=== PATIENT | female | born 1980 | race Asian ===

== ENCOUNTER 2017-01-11 02:24 | Inpatient (IN) | payer MEDICARE, MEDICAID ==
[~2017-01-11] VITALS: Ht 149.9 cm; Wt 51.7 kg
[~2017-01-11 02:24] MED LIST: METO-5 PO; OYST500T48 OR; SEVE800T PO
[2017-01-11 03:23] LABS: Basophils # (auto) 0.1 uL; Basophils % (auto) 0.4 % (0.0-2.0); Eosinophils # (auto) 0.1 uL; Eosinophils % (auto) 0.9 % (0.0-7.0); Hematocrit 34.6 % (36.0-46.0); Hemoglobin 11.4 g/dL (12.2-16.2); Lymphocytes # (auto) 2.2 uL; Lymphocytes % (auto) 16.1 % (10.0-50.0); Mean Corpuscular Hemoglobin 30.8 pg (28.0-32.0); Mean Corpuscular Hgb Conc. 32.9 g/dL (32.0-36.0); Mean Corpuscular Volume 93.4 fL (80.0-100.0); Mean Platelet Volume 8.9 fL (7.4-10.4); Monocytes # (auto) 0.4 uL; Monocytes % (auto) 2.8 % (0.0-12.0); Neutrophils # (auto) 11.1 uL; Neutrophils % (auto) 79.8 % (37.0-80.0); Platelet Count (auto) 228 10^3/uL (140-450); Red Cell Distribution Width 13.7 % (11.6-16.0); White Blood Cell 13.9 10^3/uL (4.4-10.8)
[2017-01-11 03:30] LABS: Prothrombin Time 10.8 sec (9.37-12.3)
[2017-01-11 03:49] LABS: Albumin 3.7 g/dL (3.4-5.0); Anion Gap 16 (5-15); Aspartate Aminotransferase 25 U/L (15-37); Carbon Dioxide 22 mmol/L (21-32); Chloride 94 mmol/L (98-107); Glucose 103 mg/dL (74-106); Magnesium 2.4 mg/dL (1.6-2.6); Sodium 132 mmol/L (136-145)
[2017-01-11 03:56] LABS: Alkaline Phosphatase 71 U/L (45-117); BUN/Creatinine Ratio 7.3; Bilirubin, Total 0.4 mg/dL (0.2-1.0); GFR African American 3 mL/min; GFR Non-African American 3 mL/min; Total Protein 8.1 g/dL (6.4-8.2)
[2017-01-11 04:33] LABS: Potassium 6.9 mmol/L (3.5-5.1)
[2017-01-11 04:34] LABS: Blood Urea Nitrogen 118 mg/dL (7-18); Calcium 5.8 mg/dL (8.5-10.1)
[2017-01-11] MEDS ORDERED: SODIUM BICARBONATE 8.4 % INJ 50ML VIAL IV ONE ×2 (05:00→11:15)
[2017-01-11] MEDS ORDERED: DEXTROSE (50%) 50ML SYRG IV ONE (05:00)
[2017-01-11] MEDS ORDERED: ONDANSETRON HCL 4 MG/2 ML VIAL IV ONE (05:00)
[2017-01-11] MEDS ORDERED: InsuLIN REG 1unit/0.01ml Soln (100units/ml) IV ONE ×2 (05:00→11:15)
[2017-01-11] MEDS ORDERED: SODIUM CHLORIDE 0.9% 1,000 ML IV ONE (05:00)
[2017-01-11] MEDS ORDERED: CALCIUM GLUC 4.65 MEQ/10ML IV ONE (05:09)
[2017-01-11 05:10] LABS: Temperature: 21.9 C (20.0-25.0)
[2017-01-11] MEDS ORDERED: CALCIUM GLUC 4.65 MEQ/10ML 4.65 MEQ in SODIUM CHL 0.9% 50 ML IV ONE (05:15)
[2017-01-11] MEDS ORDERED: SODIUM POLYSTYRENE SULF 15GM/60ML SUSP PO ONE (06:15)
[2017-01-11 10:58] LABS: BUN/Creatinine Ratio 7.5; Calcium 6.4 mg/dL (8.5-10.1)
[2017-01-11 11:07] LABS: Potassium 7.9 mmol/L (3.5-5.1)
[2017-01-11] MEDS ORDERED: ALBUTEROL SULF 2.5 MG/0.5ML(0.5%) NEB SOLN NEB ONE (11:15)
[2017-01-11] MEDS ORDERED: CALCIUM CHL 100MG/ML 1,000 MG in D5W 5% 100 ML IV ONE (11:15)
[2017-01-11 11:33] LABS: Urine Bilirubin Negative (Negative); Urine Blood TRACE /uL (Negative); Urine Color Yellow (Yellow); Urine Glucose 2+ mg/dL (Normal); Urine Ketone Negative (Negative); Urine Nitrite Negative (Negative); Urine RBC 2 /hpf (0 - 4); Urine Squamous Epithelial Cell FEW /hpf (<5); Urine Urobilinogen Normal (Negative)
[2017-01-11] MEDS ORDERED: INSULIN R IV ONE ×4 (11:45)
[2017-01-11] MEDS ORDERED: SODIUM CHL 0.9% IV SCH (11:45)
[2017-01-11] MEDS ORDERED: INSULIN R IV SCH (11:45)
[2017-01-11] MEDS ORDERED: SODIUM CHL 0.9% IV ONE ×4 (11:45)
[2017-01-11] MEDS ORDERED: SODIUM CHL 0.9% 1000 ML BAG XX ONE (14:30)
[2017-01-11] MEDS ORDERED: HYDROcodone-ACET 5/325MG TAB PO PRN (14:45)
[2017-01-11] MEDS ORDERED: NITROGLYCERIN 0.4 MG SL TAB SL PRN (14:45)
[2017-01-11] MEDS ORDERED: TEMAZEPAM 15 MG CAP PO PRN (14:45)
[2017-01-11] MEDS ORDERED: MORPHINE SULF INJ 2 MG/ML SYRINGE 1ML IV PRN ×2 (14:45)
[2017-01-11] MEDS ORDERED: ONDANSETRON HCL 4 MG/2 ML VIAL IV PRN (14:45)
[2017-01-11] MEDS ORDERED: ACETAMINOPHEN 325 MG TAB PO PRN (14:45)
[2017-01-11] MEDS ORDERED: DEXTROSE (50%) 50ML SYRG IV PRN (14:45)
[2017-01-11] MEDS ORDERED: DOCUSATE SOD 100 MG CAP PO PRN (14:45)
[2017-01-11] MEDS ORDERED: METOPROLOL TARTRATE 50 MG TAB PO ONE (15:00)
[2017-01-11] MEDS ORDERED: MULTIPLE VITAMIN TAB PO ONE (15:00)
[2017-01-11 19:39] LABS: BUN/Creatinine Ratio 5.8; Calcium 7.6 mg/dL (8.5-10.1); Potassium 4.4 mmol/L (3.5-5.1)
[2017-01-11 20:00] VITALS: BP 145/76
[2017-01-11 22:00] VITALS: BP 145/76
[2017-01-11] MEDS: FAMOTIDINE 20 MG TAB PO SCH (22:00)
[2017-01-11] MEDS: InsuLIN REG 1unit/0.01ml Soln (100units/ml) SC SCH (22:00)
[2017-01-11] MEDS: ACCU-CHEK COMFORT CURVE STRIP VI SCH (22:00)
[2017-01-11] MEDS: SEVELAMER 800 MG TAB PO SCH (22:27)
[2017-01-11] MEDS: SODIUM CHLOR 0.9% PF (SALINE LOCK) 10ML VIAL IV SCH (22:27)
[2017-01-11] MEDS: CALCIUM CARB 500 MG CHEW TAB PO SCH (22:28)
[2017-01-11] MEDS: METOPROLOL TARTRATE 50 MG TAB PO SCH (22:28)
[2017-01-12] VITALS (7 sets, daily range): BP systolic 133–166; BP diastolic 71–95
[2017-01-12] MEDS: SODIUM CHLOR 0.9% PF (SALINE LOCK) 10ML VIAL IV SCH ×2 (06:00→14:00)
[2017-01-12 06:29] LABS: Basophils # (auto) 0.1 uL; Basophils % (auto) 0.5 % (0.0-2.0); Eosinophils # (auto) 0.2 uL; Eosinophils % (auto) 1.6 % (0.0-7.0); Hematocrit 33.3 % (36.0-46.0); Lymphocytes # (auto) 3.2 uL; Lymphocytes % (auto) 29.9 % (10.0-50.0); Mean Corpuscular Hemoglobin 30.6 pg (28.0-32.0); Mean Corpuscular Volume 92.9 fL (80.0-100.0); Mean Platelet Volume 9.1 fL (7.4-10.4); Monocytes % (auto) 9.7 % (0.0-12.0); Neutrophils # (auto) 6.2 uL; Neutrophils % (auto) 58.3 % (37.0-80.0); Platelet Count (auto) 223 10^3/uL (140-450); Red Cell Distribution Width 13.5 % (11.6-16.0); White Blood Cell 10.6 10^3/uL (4.4-10.8)
[2017-01-12] MEDS: InsuLIN REG 1unit/0.01ml Soln (100units/ml) SC SCH ×2 (06:37→11:30)
[2017-01-12] MEDS: ACCU-CHEK COMFORT CURVE STRIP VI SCH ×2 (06:37→11:30)
[2017-01-12 06:40] LABS: Potassium 4.1 mmol/L (3.5-5.1)
[2017-01-12 06:54] LABS: Albumin 3.4 g/dL (3.4-5.0); BUN/Creatinine Ratio 5.7; Bilirubin, Total 0.4 mg/dL (0.2-1.0); Calcium 7.1 mg/dL (8.5-10.1); Total Protein 7.1 g/dL (6.4-8.2)
[2017-01-12] MEDS ORDERED: MULTIPLE VITAMIN TAB PO SCH (10:00)
[2017-01-12] MEDS: CALCIUM CARB 500 MG CHEW TAB PO SCH (10:44)
[2017-01-12] MEDS: FAMOTIDINE 20 MG TAB PO SCH (10:44)
[2017-01-12] MEDS: SEVELAMER 800 MG TAB PO SCH ×2 (10:44→12:31)
[2017-01-12] MEDS: METOPROLOL TARTRATE 50 MG TAB PO SCH (10:45)
== END 2017-01-12 17:20 | disposition home or self-care (01) | DRG 640 ==
LOC: ER 02:25 → TELE 02:26 → TELE-EAST 16:56 → TELE-WESTW 17:48
PROVIDERS: ADMIT Internal Medicine; ATTEND Internal Medicine
PROC: 5A1D00Z (ICD-10-PCS; principal; 2017-01-11)
DX: E87.5 Hyperkalemia (principal); N18.6 End stage renal disease; I13.2 Hypertensive heart and chronic kidney disease with heart failure and with stage 5 chronic kidney disease, or end stage renal disease; E87.1 Hypo-osmolality and hyponatremia; D63.8 Anemia in other chronic diseases classified elsewhere; E83.51 Hypocalcemia; E11.21 Type 2 diabetes mellitus with diabetic nephropathy; E11.22 Type 2 diabetes mellitus with diabetic chronic kidney disease; I50.9 Heart failure, unspecified; Z90.49 Acquired absence of other specified parts of digestive tract; Z99.2 Dependence on renal dialysis
CPT/HCPCS: 36415; 71010; 80048; 80053; 81001; 82962; 83036; 83735; 83880; 84443; 84484; 85025; 85610; 85730; 87081; 90935; 93005; 94640; 96365; 96366; 96367; 96375; 96376; 99291; J1815; J2405; J7060